=== PATIENT | female | born 1955 | race Caucasian/White ===

== ENCOUNTER 2019-10-15 01:22 | Day surgery (SDC) | payer OTHER, SELFPAY ==
[2019-10-14 16:16] VITALS: BMI 31.7
[2019-10-15] VITALS (8 sets, daily range): BP systolic 106–147; BP diastolic 56–93; PULSE 61–77; RESP 11–18; TEMP 36.1–36.3; O2SAT 93–100
--- NOTE | ~2019-10-15 | XR_ITS ---
EXAMINATION: XR retrograde pyelo w/stent RT DATE: 10/15/2019 12:45 INDICATION: Right internal ureteral stent TECHNIQUE: Fluoroscopic images from a right internal ureteral stent placement are submitted for tim phillips 34 seconds of fluoroscopy time. 8 fluoroscopic images. FINDINGS: There is a right double-J internal ureteral stent projecting in expected position, with proximal [place] loop at the level of the renal pelvis and distal loop in the pelvis within the bladder lumen. IMPRESSION: 1. Right internal ureteral stent placement. Please refer to real-time procedural findings for lesly hough. Reviewed, dictated and finalized at location A. IMPRESSION: 1. Right internal ureteral stent placement. Please refer to real-time procedu ral findings for details.
--- NOTE | 2019-10-15 09:09 | ECG_ITS ---
Measurements Intervals [place] Rate: 69 P: 54 VA: 150 QRS: 29 QRSD: 91 T: 41 QT: 394 QTc: 424 Interpretive Statements SINUS RHYTHM NORMAL ECG Electronically Signed On 10-15-2019 12:22:49 CDT by Jonathan Pennington D.O.
[2019-10-15] MEDS: LACTATED RINGERS 1,000 ML 30 ML IV CONT ×2 (09:40→12:47)
[2019-10-15 09:47] LABS: Glucose Point of Care 121 (65-105)
--- NOTE | 2019-10-15 10:13 | WPDHPUPDATE1 ---
History and Physical Update Update Date/Time: 10/15/19 10:13 History and Physical has been reviewed, including an updated exam of the patient. There are NO changes in the patient's condition. Risks, benefits, and alternatives have been discussed and questions answered. Patient agrees to proceed with procedure.
--- NOTE | 2019-10-15 10:32 | WPDANESEPPF ---
Anes - Initial Pre Proc Eval Procedure: Operation Date: 10/15/19 11:00 Proposed Procedures p Cystoscopy, Right Ureteroscopy, Right Retrograde Pyelogram, Right Stone Extraction, - Christian Pedroza MD s Possible Holmium Laser Procedure, Right Stent Placement - Christian Pedroza MD Date/Time: 10/15/19 10:32 Surgeon: Christian Pedroza MD Pre Op Diagnosis: Right Ureteral Stone Patient Data Age: 64 Gender: F Height: 5 ft 4 in Weight: 82.4 kg Allergies Allergy/AdvReac Type Severity Reaction Status Date / Time No Known Allergies Allergy Unknown Verified 10/15/19 10:24 Home Medications Medication Instructions Recorded Confirmed Type amlodipine 5 mg PO DAILY 10/14/19 10/15/19 History cephalexin 500 mg PO Q8H 10/14/19 10/15/19 History cholecalciferol (vitamin D3) 125 mcg PO DAILY 10/14/19 10/15/19 History [Vitamin D3] lactobacillus combination no.8 3,000 mmu cells PO DAILY 10/14/19 10/15/19 History [Adult Probiotic] meloxicam 15 mg PO DAILY 10/14/19 10/15/19 History metformin 500 mg PO BID 10/14/19 10/15/19 History simvastatin 20 mg PO DAILY 10/14/19 10/15/19 History tramadol 50 mg PO Q6H PRN 10/14/19 10/15/19 History Laboratory Tests 10/15/19 09:45 POC Capillary Glucose 121 mg/dl H mg/dl (65-105) Patient hx anesthesia problems: none Family hx anesthesia problems: none [facility] Past Medical History Medical History Diabetes Hyperlipidemia Hypertension Anes - Eval Final PreProcedure Day of Procedure 10/15/19 10:32 Patient weight: obese Heart: regular rate and rhythm Lungs: clear to auscultation Airway: Mallampati scale class 1 Neurological: alert and oriented Last oral intake: >/= 8 hours ASA classification: III Emergent: no Anesthetic plan: proceed Anesthesia type and monitoring: general LMA and standard monitoring Informed Consent: The patient's anesthetic plan and its attendant risks and benefits were discussed with the patient/family/POA. Questions were solicited and answers provided to the satisfaction of the patient/family/POA.
[2019-10-15] MEDS: ceFAZolin 2 GM/D5W 50 ML 2 GM/50 ML BAG IVPB (11:40)
--- NOTE | 2019-10-15 12:42 | P.OP_ITS ---
Procedure Note - Detailed Date of procedure: 10/15/19 Pre-op diagnosis: Right Ureteral Stone Post-op diagnosis: other (Right ureteral pelvic junction stone 1 cm) Procedure performed: Cystoscopy, right retrograde, right ureteroscopy with holmium laser, stone extraction, right ureteral stent placement 4.8 [place] contour Description of procedure: Patient was taken the operative suite and correctly identified. Once general anesthesia was obtained she was placed in dorsal lithotomy position and prepped and draped the usual sterile fashion. Twenty-two [place] scope was inserted in the bladder. The right ureteral orifice was cannulated with a guidewire. Would not get past the stone which was actually at the UPJ area. At this point did a 8/10 dilator placed a rigid ureteral scope in. We are able to fragment a portion of this stone to allow passage of a wire. We then placed a ureteral access sheath and. Using the holmium laser we fragmented the stone in multiple pieces. Some of this flushed the kidney. We then placed a mini flexible ureteroscope it in to the kidney and retrieved any visible pieces. These were sent for analysis. Pyelogram was then performed to confirm placement of the stent. 4.8 [place] contour stent was then placed with the proximal end coiled in the renal pelvis and the distal in the bladder. Bladder was drained. 2% viscous lidocaine was her urethra. Patient is taken recovery stable condition. She tolerated procedure well without any complications. She will be discharged home with pain meds and antibiotics. She will follow up in a week's time for stent removal to call for that appointment. Anesthesia: GLMA Surgeon: Christian Pedroza MD Drains: Yes Packing: No Pathology: yes Complications: No immediate complications Condition: stable Disposition: PACU
[2019-10-15] MEDS: LIDOCAINE HCL 2% GEL UROJET 10 ML PKG MUCOUS MEM (12:52)
== END 2019-10-15 14:45 | disposition home or self-care (01) ==
PROVIDERS: PCP Family Medicine; Visit Provider Urology
PROC: (CPT 52352; principal; 2019-10-15 11:00)
PROC: (CPT 52356; 2019-10-15 11:00)
DX: N20.1 Calculus of ureter (principal); I10 Essential (primary) hypertension; E78.5 Hyperlipidemia, unspecified; E11.9 Type 2 diabetes mellitus without complications; Z79.84 Long term (current) use of oral hypoglycemic drugs; E66.9 Obesity, unspecified; Z68.31 Body mass index [BMI] 31.0-31.9, adult
CPT/HCPCS: 52356; 74420; 82365; 88300; 93005; A9270; C1758; C1769; C1894; C2617; J0690; J1100; J2250; J2405; J2704; J3010; J7120

== ENCOUNTER 2019-11-09 10:12 | Outpatient (CLI) | payer OTHER, SELFPAY ==
--- NOTE | ~2019-11-09 | XR_ITS ---
XR abdomen/kub 1V DATE: 11/09/2019 10:30 INDICATION: Right ureteral stone TECHNIQUE: AP projection, 2 views COMPARISON: 10/15/2019 right retrograde pyelogram FINDINGS: The right internal urinary stent is no longer present. Multiple surgical clips overlie the right upper quadrant. The psoas shadows are intact. No visceromegaly is evident. Probable right calcified pelvic phlebolith s. Abdominal aortic calcification. No evidence of bowel obstruction. IMPRESSION: Removal right internal urinary stent Reviewed, dictated and finalized at Location A. Reviewed, dictated and finalized at location A.
--- NOTE | ~2019-11-09 | US_ITS ---
EXAMINATION: US retroperitoneal comp EXAM DATE: 11/09/2019 11:44 INDICATION: Right ureteral stone. TECHNIQUE: Multiple grayscale and Doppler images of the kidneys were obtained (by a technologist who performed the scan) and subsequently reviewed. Correlation is made to KUB same date. FINDINGS: Right kidney: There is normal contour and echogenicity. It measures 3 x 4.9 x 5.2 centimeters. Ther e are no focal renal lesions identified. There is mild right-sided hydronephrosis, with a dilated re nal pelvis, only mild caliectasis. Left kidney: There is normal contour and echogenicity. It measures 11.9 x 5.4 x 6.2 centimeters. Th ere are no focal renal lesions identified. There is no hydronephrosis. Bladder unremarkable. Bilateral ureteral jets were identified. IMPRESSION: Mild right hydronephrosis. Bilateral ureteral jets confirmed. Reviewed, dictated and finalized at location A.
== END 2019-11-09 10:13 | disposition home or self-care (01) ==
LOC: ANHIMG 10:20
PROVIDERS: PCP Family Medicine; Visit Provider Urology
DX: N13.30 Unspecified hydronephrosis (principal)
CPT/HCPCS: 74018; 76770

== ENCOUNTER 2019-12-04 11:11 | Outpatient (CLI) | payer OTHER, SELFPAY ==
--- NOTE | ~2019-12-04 | XR_ITS ---
EXAMINATION: XR abdomen/kub 1V DATE: 12/04/2019 11:37 INDICATION: Right ureteral stone. TECHNIQUE: A supine view of the abdomen on 2 radiographs was obtained. COMPARISON: CT abdomen and pelvis 12/04/2019, 11/01/2019, 03/13/17, abdomen radiograph 11/10/2016 FINDINGS: There are no dilated loops of bowel. There is a 4 mm stone in right kidney lower pole. Ther e are phleboliths in the pelvis. There are no dilated loops of bowel. Surgical clips in the right upp er quadrant are likely from cholecystectomy. IMPRESSION: 1. 4 mm right kidney stone. Reviewed, dictated and finalized at location A. IMPRESSION: 1. 4 mm right kidney stone.
--- NOTE | ~2019-12-04 | CT_ITS ---
EXAMINATION: CT abdomen pelvis wo con DATE: 12/04/2019 11:47 INDICATION: Right ureteral stone. TECHNIQUE: Computed tomography (CT) of the abdomen and pelvis was performed without intravenous contr ast. Automated exposure control and iterative reconstruction technique were employed. The dose-length product was 286.87 mGy-cm. COMPARISON: CT abdomen and pelvis 11/01/2019, 03/13/2017 FINDINGS: The visualized portions of the lung bases demonstrate mild atelectasis in the right. No ple ural effusion. The heart size is normal. No pericardial effusion. There is diffuse hepatic steatosis. There are changes of cholecystectomy. The spleen, pancreas, adrenal glands, and left kidney are norm al. There is a 4 mm stone in right kidney are normal. There is diverticulosis of the colon without ev idence of diverticulitis. There are no dilated loops of bowel. The appendix is normal. There are no p athologically enlarged lymph nodes. There is no free intraperitoneal fluid. There is severe lumbar sp ondylosis. Lumbar dextrocurvature is noted. IMPRESSION: 1. 4 mm nonobstructing right kidney stone. Reviewed, dictated and finalized at location A.
== END 2019-12-04 11:12 | disposition home or self-care (01) ==
PROVIDERS: PCP Family Medicine; Visit Provider Urology
DX: N20.1 Calculus of ureter (principal); N20.0 Calculus of kidney
CPT/HCPCS: 74018; 74176

== ENCOUNTER 2020-07-06 14:27 | Outpatient (CLI) | payer MEDICARE, SELFPAY ==
--- NOTE | ~2020-07-06 | XR_ITS ---
XR abdomen/kub 1V DATE: 07/06/2020 14:54 INDICATION: Calcium kidney stone TECHNIQUE: AP projection, 2 views COMPARISON: 12/04/2019 KUB 12/04/[address] abdomen pelvis FINDINGS: There is a stable approximate 4 mm linear calcification of the lower pole of the right kidn ey, stable since 12/04/2019. Multiple surgical clips are again noted overlying the right upper quadrant. There is a prominent of fecal material throughout the colon. No bowel obstruction is evident. The pso as shadows are intact. No visceromegaly is detected. IMPRESSION: Stable small lower pole right renal nonobstructing calcified calculus Reviewed, dictated and finalized at Location A. Reviewed, dictated and finalized at location B. [employer]PERATOR [employer] IMPRESSION: Stable small lower pole right renal nonobstructing calcified calcul us
== END 2020-07-06 14:28 | disposition home or self-care (01) ==
LOC: ANHIMG 14:37
PROVIDERS: PCP Family Medicine; Visit Provider Urology
DX: N20.0 Calculus of kidney (principal)
CPT/HCPCS: 74018

== ENCOUNTER → 2020-08-19 09:15 | Outpatient (CLI) | payer MEDICARE, SELFPAY ==
[2020-08-19 19:41] LABS: SARS-CoV-2 RNA PCR Negative
== END ==
PROVIDERS: PCP Family Medicine; Visit Provider Urology
DX: Z01.812 Encounter for preprocedural laboratory examination (principal); Z20.822 Contact with and (suspected) exposure to COVID-19
CPT/HCPCS: C9803; U0003; U0005

== ENCOUNTER 2020-08-21 00:34 | Day surgery (SDC) | payer MEDICARE, SELFPAY ==
[2020-08-19 11:06] VITALS: BMI 30.4
[2020-08-21] VITALS (9 sets, daily range): BP systolic 120–158; BP diastolic 66–79; PULSE 67–96; RESP 12–14; TEMP 36.2–36.6; O2SAT 99–100
--- NOTE | ~2020-08-21 | XR_ITS ---
EXAMINATION: XR retrograde pyelo w/stent RT EXAM DATE: 08/21/2020 11:56 INDICATION: Right-sided hydronephrosis. TECHNIQUE: Fluoroscopy used during XR retrograde pyelo w/stent RT performed by Dr. Christian aparicio MD. The DAP for this procedure was 276 radcm2 FINDINGS: Moderate right-sided hydroureteronephrosis demonstrated. A double-J ureteral stent was lore emilio. Correlate with procedure note. IMPRESSION: Fluoroscopy used during XR retrograde pyelo w/stent RT. Reviewed, dictated and finalized at location A. [employer]
--- NOTE | 2020-08-21 09:06 | WPDHPUPDATE1 ---
History and Physical Update Update Date/Time: 08/21/20 09:06 History and Physical has been reviewed, including an updated exam of the patient. There are NO changes in the patient's condition. Risks, benefits, and alternatives have been discussed and questions answered. Patient agrees to proceed with procedure. Plan for cystoscopy, right retrograde pyelogram, right ureteroscopy with possible holmium laser, stone extraction and stent placement
[2020-08-21] MEDS: LACTATED RINGERS 1,000 ML 30 ML IV CONT ×2 (10:47→12:35)
[2020-08-21 10:54] LABS: Glucose Point of Care 111 (65-105)
--- NOTE | 2020-08-21 11:00 | P.PNAN_ITS ---
Anes - Initial Pre Proc Eval Procedure: Operation Date: 08/21/20 10:30 Proposed Procedures p Cystoscopy, Right Ureteroscopy, Right Retrograde Pyelogram, Right Stone Extraction, Possible Right Stent Placement, - Christian Pedroza MD s Possible Holmium Laser Procedure - Christian Pedroza MD Date/Time: 08/21/20 11:00 Surgeon: Christian Pedroza MD Pre Op Diagnosis: right ureteral calculus Patient Data Age: 65 Gender: F Height: 5 ft 4 in Weight: 78.15 kg Last Vital Signs Temp 97.2 F L 08/21/20 09:58 Pulse 96 08/21/20 09:58 Resp 14 08/21/20 09:58 BP 147/72 H 08/21/20 09:58 Pulse Ox 100 08/21/20 09:58 Allergies Allergy/AdvReac Type Severity Reaction Status Date / Time No Known Allergies Allergy Unknown Verified 08/21/20 10:21 Home Medications Medication Instructions Recorded Confirmed Type Adult Probiotic 3,000 mmu cells PO DAILY 10/14/19 08/21/20 History amlodipine 5 mg PO HS 10/14/19 08/21/20 History cholecalciferol (vitamin D3) 125 mcg PO DAILY 10/14/19 08/21/20 History [Vitamin D3] meloxicam 15 mg PO DAILY 10/14/19 08/21/20 History metformin 500 mg PO BID 10/14/19 08/21/20 History simvastatin 20 mg PO QAM 10/14/19 08/21/20 History docusate sodium 100 mg PO BID PRN 08/19/20 08/21/20 History hydrocodone-acetaminophen 1 tablet PO Q4H PRN 08/19/20 08/21/20 History ondansetron HCl [Zofran] 4 mg PO Q8H PRN 08/19/20 08/21/20 History tamsulosin [Flomax] 0.4 mg PO HS 08/19/20 08/21/20 History Laboratory Tests 08/21/20 10:50 POC Capillary Glucose 111 mg/dl H mg/dl (65-105) Patient hx anesthesia problems: none Family hx anesthesia problems: none PMFSH Past Medical History Medical History Diabetes Hyperlipidemia Hypertension Social History Social History Smoking status: Never smoker Second hand tobacco smoke exposure: No Alcohol intake: current Drinks per week: 1 Substance use: never Substance use type: does not use Living arrangements: with family Spiritual care concerns: No Anes - Eval Final PreProcedure Day of Procedure 08/21/20 11:00 Patient weight: overweight Heart: regular rate and rhythm Lungs: clear to auscultation Airway: Mallampati scale class II Neurological: alert and oriented Last oral intake: >/= 8 hours ASA classification: III Emergent: no Anesthetic plan: proceed Anesthesia type and monitoring: general LMA and standard monitoring Informed Consent: The patient's anesthetic plan and its attendant risks and b enefits were discussed with the patient/family/POA. Questions were solicited and answers provided to the satisfaction of the patient/family/POA.
[2020-08-21] MEDS: ceFAZolin 2 GM/D5W 50 ML 2 GM/50 ML BAG IVPB (11:30)
[2020-08-21] MEDS: LIDOCAINE HCL 2% GEL UROJET 10 ML PKG MUCOUS MEM (11:46)
--- NOTE | 2020-08-21 11:57 | P.OP_ITS ---
Procedure Note - Detailed Date of procedure: 08/21/20 Pre-op diagnosis: right ureteral calculus Post-op diagnosis: same Procedure performed: Cystoscopy, right retrograde pyelogram, right ureteroscopy with stone extraction, right ureteral stent placement 4.8 [place] contour Description of procedure: Patient is taken to the operative suite and correctly identified. Once anesthesia was obtained she was placed in dorsal lithotomy position and prepped and draped usual sterile fashion. Twenty-two [place] scope was inserted into the bladder. There are no tumors noted. The right ureteral orifice was cannulated with a guidewire. Rigid ureteral scope was then inserted. Stone was visualized. Using an escape basket we retrieved the stone. It was somewhat friable nature we took out a couple of fragments from it. Reinspection revealed no residual stones. Ureteral scope was then inserted all the way up to the renal pelvis without any other ureteral stones noted. Pyelogram was then performed to confirm placement of the stent. 4.8 [place] contour stent was then placed with the proximal end coiled in the renal pelvis and distal in the bladder. Bladder was drained. 2% viscous lidocaine was inserted urethra. Patient is taken recovery stable condition. She will follow up in a week's time for stent removal. Anesthesia: GLMA Surgeon: Christian Pedroza MD Drains: Yes Packing: No Pathology: yes Complications: No immediate complications Condition: stable Disposition: PACU
[2020-08-21 12:16] LABS: Glucose Point of Care 120 (65-105)
[2020-08-21] MEDS: oxyCODONE HCL (*CRX) 5 MG TAB IR PO (13:05)
== END 2020-08-21 14:06 | disposition home or self-care (01) ==
PROVIDERS: PCP Family Medicine; Visit Provider Urology
PROC: (CPT 52352; principal; 2020-08-21 10:30)
DX: N20.1 Calculus of ureter (principal); Z79.84 Long term (current) use of oral hypoglycemic drugs; E11.9 Type 2 diabetes mellitus without complications; I10 Essential (primary) hypertension; E78.5 Hyperlipidemia, unspecified
CPT/HCPCS: 52352; 52332; 74420; 82365; 82948; 88300; A9270; C1758; C1769; C1894; C2617; J0690; J1100; J2405; J2704; J3010; J7120; Q9966

== ENCOUNTER 2023-03-02 00:52 | Day surgery (SDC) | payer MEDICARE, SELFPAY ==
[2023-02-21 11:06] VITALS: BMI 29.6
--- NOTE | 2023-03-01 15:51 | PM.HPGS ---
History of Present Illness History of Present Illness Consent: Risks, benefits, and alternatives have been discussed and questions answered. Patient agrees to proceed with procedure. Chief complaint: neoplasm screening Narrative: Lucila Ortega is a 67 year old female Referred for colon cancer screening. Her last colonoscopy was 11 years ago. She has had a prior sigmoid colon resection for diverticulitis. Review of Systems Review of Systems: All systems reviewed & are unremarkable except as noted in HPI and below PMFSH Past Medical History Medical History Diabetes Hyperlipidemia Hypertension Social History Social History Smoking status: Never smoker Second hand tobacco smoke exposure: No Alcohol intake: current Drinks per week: 1 Alcohol use details: occasional Substance use: never Substance use type: does not use Living arrangements: with family Spiritual care concerns: No Meds Home Medications and Allergies Home Medications Medication Instructions Recorded Confirmed Type cholecalciferol (vitamin D3) 125 125 mcg PO DAILY 10/14/19 03/02/23 History mcg (5,000 unit) tablet (Vitamin D3) meloxicam 15 mg tablet 15 mg PO DAILY 10/14/19 03/02/23 History metformin 1,000 mg tablet 1,000 mg PO BID 10/14/19 03/02/23 History simvastatin 20 mg tablet 20 mg PO QAM 10/14/19 03/02/23 History lisinopril 10 mg tablet 5 mg PO DAILY 02/21/23 03/02/23 History psyllium husk 3.4 gram/5.4 gram 1 tbsp PO DAILY 02/21/23 03/02/23 History oral powder (Metamucil) Allergies Allergy/AdvReac Type Severity Reaction Status Date / Time No Known Allergies Allergy Unknown Verified 03/02/23 09:07 Exam Resp: Auscultation: clear to auscultation bilaterally Cardio: Rate: regular rate Rhythm: regular rhythm GI: GI Palp: Yes Soft to palpation and No Tenderness to palpation present (GI) Assessment and Plan Assessment and plan (1) Colon cancer screening: Code(s): Z12.11 - Encounter for screening for malignant neoplasm of colon Status: Acute Assessment and Plan: Colonoscopy with possible biopsy or polypectomy or cautery or injection of substances.
[2023-03-02 09:08] VITALS: BP 148/72; PULSE 68; RESP 20; TEMP 36.2; O2SAT 100; BMI 29.0
[2023-03-02 09:08] LABS: Glucose Point of Care 108 mg/dl (65-105)
[2023-03-02] MEDS: LACTATED RINGERS 1,000 ML 150 ML IV CONT (09:18)
--- NOTE | 2023-03-02 09:20 | P.PNAN_ITS ---
Anes - Initial Pre Proc Eval Procedure: Operation Date: 03/02/23 10:30 Proposed Procedures p Screening Colonoscopy - Leandro Del Angel MD Date/Time: 03/02/23 09:20 Surgeon: Leandro Del Angel MD Pre Op Diagnosis: neoplasm screening Patient Data Age: 67 Gender: F Height: 1.63 m Weight: 76.8 kg Last Vital Signs Temp 97.1 F L 03/02/23 09:08 Pulse 68 03/02/23 09:08 Resp 20 03/02/23 09:08 BP 148/72 H 03/02/23 09:08 Pulse Ox 100 03/02/23 09:08 O2 Del Method Room Air 03/02/23 09:08 Allergies Allergy/AdvReac Type Severity Reaction Status Date / Time No Known Allergies Allergy Unknown Verified 03/02/23 09:07 Home Medications Medication Instructions Recorded Confirmed Type cholecalciferol (vitamin D3) 125 125 mcg PO DAILY 10/14/19 03/02/23 History mcg (5,000 unit) tablet (Vitamin D3) meloxicam 15 mg tablet 15 mg PO DAILY 10/14/19 03/02/23 History metformin 1,000 mg tablet 1,000 mg PO BID 10/14/19 03/02/23 History simvastatin 20 mg tablet 20 mg PO QAM 10/14/19 03/02/23 History lisinopril 10 mg tablet 5 mg PO DAILY 02/21/23 03/02/23 History psyllium husk 3.4 gram/5.4 gram 1 tbsp PO DAILY 02/21/23 03/02/23 History oral powder (Metamucil) Laboratory Tests 03/02/23 09:05 POC Capillary Glucose 108 H mg/dl (65-105) Patient hx anesthesia problems: none Family hx anesthesia problems: none Results Review: All pre-operative results and documents have been reviewed as part of the pre- operative evaluation. [facility] Past Medical History Medical History Diabetes Hyperlipidemia Hypertension Social History Social History Smoking status: Never smoker Second hand tobacco smoke exposure: No Alcohol intake: current Drinks per week: 1 Alcohol use details: occasional Substance use: never Substance use type: does not use Living arrangements: with family Spiritual care concerns: No Anes - Eval Final PreProcedure Day of Procedure 03/02/23 09:20 Patient weight: normal Heart: regular rate and rhythm Lungs: clear to auscultation Airway: Mallampati scale class II Neurological: alert and oriented Last oral intake: >/= 8 hours ASA classification: III Emergent: no Anesthetic plan: proceed Anesthesia type and monitoring: general GIVS and standard monitoring Results Review: All pre-operative results and documents have been reviewed as part of the pre- operative evaluation. Informed Consent: The patient's anesthetic plan and its attendant risks and benefits were discussed with the patient/family/POA. Questions were solicited and answers provided to the satisfaction of the patient/family/POA.
[2023-03-02] MEDS: SIMETHICONE ORAL SUSPENSION 20 MG/0.3 ML 30 ML BOTTLE 0.6 ML IRRIGATION (09:34)
[2023-03-02 09:50] VITALS: BP 130/58; PULSE 56; RESP 20; O2SAT 100
[2023-03-02 10:00] VITALS: BP 118/65; PULSE 63; RESP 22; O2SAT 98
[2023-03-02 10:10] VITALS: BP 135/63; PULSE 63; RESP 14; O2SAT 100
== END 2023-03-02 10:20 | disposition home or self-care (01) ==
PROVIDERS: Visit Provider Internal Medicine Gastroenterology
PROC: 0DJD8ZZ Inspection of Lower Intestinal Tract, Via Natural or Artificial Opening Endoscopic (ICD-10-PCS; CPT 45378; principal; 2023-03-02 10:30)
DX: Z12.11 Encounter for screening for malignant neoplasm of colon (principal); D12.0 Benign neoplasm of cecum; K57.30 Diverticulosis of large intestine without perforation or abscess without bleeding; Z98.0 Intestinal bypass and anastomosis status; Z90.49 Acquired absence of other specified parts of digestive tract; Z87.19 Personal history of other diseases of the digestive system; E11.9 Type 2 diabetes mellitus without complications; E78.5 Hyperlipidemia, unspecified; I10 Essential (primary) hypertension; Z79.84 Long term (current) use of oral hypoglycemic drugs
CPT/HCPCS: 45381; 45385; 45380; 82948; 88305; J2704; J7120